=== PATIENT | female | born 1980 | race Caucasian/White ===

== ENCOUNTER 2017-06-10 15:36 | Emergency (ER) | payer OTHER ==
[~2017-06-10] VITALS: Ht 157.5 cm; Wt 71.2 kg
--- NOTE | 2017-06-10 19:50 | EKG ---
[facility] [address] [facility] [place], [place] [address] Signed Sinus rhythm with marked sinus arrhythmia Otherwise normal ECG No previous ECGs available Confirmed by GISSELLE SUAREZ MD ([id number] on 06/10/2017 7:49:50 PM Electronically Signed By: GISSELLE SUAREZ MD 06/10/17 1950 PATIENT NAME: JAMAR IVORY Electrocardiogram DATE OF : 82 PHYSICIAN: GISSELLE SUAREZ MD REPORT #: [id number] REPORT IS CONFIDENTIAL AND NOT TO BE RELEASED WITHOUT AUTHORIZATION
== END 2017-06-10 19:22 | disposition home or self-care (01) ==
LOC: ED 15:36
DX: R07.89 Other chest pain (principal); F17.210 Nicotine dependence, cigarettes, uncomplicated
CPT/HCPCS: 71045; 80053; 83690; 84484; 85025; 85379; 93005; 93010; 96374; 99284; J1885

== ENCOUNTER 2022-11-28 12:10 | Emergency (ER) | payer OTHER, BC ==
[~2022-11-28] VITALS: Ht 157.5 cm; Wt 71.2 kg
[2022-11-28] MEDS ORDERED: GENTAMICIN SULFA5 ML OPTH (12:59)
[2022-11-28 13:26] VITALS: BP 116/63
== END 2022-11-28 13:26 | disposition home or self-care (01) ==
LOC: ED 12:10
DX: S05.92XA Unspecified injury of left eye and orbit, initial encounter (principal); W22.8XXA Striking against or struck by other objects, initial encounter; F17.200 Nicotine dependence, unspecified, uncomplicated
CPT/HCPCS: 99283